=== PATIENT | female | born 1960 | race Caucasian/White ===

== ENCOUNTER 2017-09-25 22:46 | Observation (INO) | payer OTHER ==
[2017-09-25] MEDS ORDERED: Dextrose 50% Abboject 50 ML SYRINGE ONE (22:51)
[2017-09-25 23:06] LABS: #Eosinphils 0.1 thou/uL (0.0-0.7); #Lymphocytes 0.6 thou/uL (1.20-3.40); #Monocytes 0.7 thou/uL (0.11-0.59); #Neutrophils 9.4 thou/uL (1.40-6.50); %Basophils 0.2 % (0.0-1.0); %Eosinophils 1.2 % (0.0-10.0); %Lymphocytes 5.8 % (21.0-51.0); %Monocytes 6.7 % (0.0-10.0); Hematocrit 47.9 % (36.0-47.0); Mean Platelet Volume 6.2 fL (7.4-10.4); Red Blood Cell (RBC) Count 5.44 mill/uL (4.20-5.40)
[2017-09-25 23:30] LABS: ALT (SGPT) 17 U/L (8-55); AST (SGOT) 22 U/L (5-34); Alkaline Phosphatase 100 U/L (40-150); Anion Gap 14 mmol/L (10-20); BUN (Urea Nitrogen) 25 mg/dL (9.8-20.1); Bilirubin, Total 0.4 mg/dL (0.2-1.2); Calc. Creatinine Clearance 0 mL/min (70-130); Calcium 9.3 mg/dL (7.8-10.44); Carbon Dioxide 31 mmol/L (22-29); Chloride 101 mmol/L (98-107); Estimated GFR-MDRD 48; Globulin 3.5 g/dL (2.4-3.5); Protein, Total 7.6 g/dL (6.0-8.3)
[2017-09-25] MEDS ORDERED: Ondansetron HCl/PF 4 MG/2 ML Vial ONE (23:34)
[2017-09-25 23:44] LABS: CK (CPK) 181 U/L (29-168); Lipase 14 U/L (8-78)
[2017-09-25 23:47] LABS: Troponin I Less than 0.010 ng/mL (< 0.028)
[2017-09-26] MEDS ORDERED: HumaLOG 300 UNITS/3 ML VIAL SC PRN (00:38)
[2017-09-26] MEDS ORDERED: Dextrose 50% Abboject 50 ML SYRINGE SLOW IVP PRN (00:38)
[2017-09-26] MEDS ORDERED: Dextrose 5% in Water 1,000 ML IV PRN (00:38)
[2017-09-26] MEDS ORDERED: Ondansetron HCl/PF 4 MG/2 ML Vial IVP PRN (00:38)
[2017-09-26] MEDS ORDERED: cloNIDine 0.1 MG TAB PO PRN (00:42)
[2017-09-26] MEDS ORDERED: Sodium Chloride 0.9% 1,000 ML IV SCH (00:45)
--- NOTE | 2017-09-26 01:06 | PDOC.EVN ---
Event Note - Event Note Event Note: [id number] H&P Dictated 1. Hypoglycemia 2. HTN 3. DM type 2 plan: see orders
[2017-09-26] MEDS ORDERED: Dextrose 5 % And 0.9 % NaCl 1,000 ML IV SCH (01:15)
[2017-09-26 02:16] LABS: #Eosinphils 0.1 thou/uL (0.0-0.7); #Lymphocytes 0.3 thou/uL (1.20-3.40); #Monocytes 0.8 thou/uL (0.11-0.59); #Neutrophils 8.2 thou/uL (1.40-6.50); %Eosinophils 1.3 % (0.0-10.0); %Lymphocytes 2.7 % (21.0-51.0); Hematocrit 40.1 % (36.0-47.0); Mean Platelet Volume 6.6 fL (7.4-10.4); Red Blood Cell (RBC) Count 4.57 mill/uL (4.20-5.40); White Blood Cell (WBC) Count 9.4 thou/uL (4.8-10.8)
[2017-09-26 02:25] LABS: Troponin I Less than 0.010 ng/mL (< 0.028)
[2017-09-26 02:26] LABS: Anion Gap 15 mmol/L (10-20); BUN (Urea Nitrogen) 28 mg/dL (9.8-20.1); Calc. Creatinine Clearance 0 mL/min (70-130); Calcium 7.9 mg/dL (7.8-10.44); Carbon Dioxide 23 mmol/L (22-29); Chloride 103 mmol/L (98-107); Estimated GFR-MDRD 58
[2017-09-26 06:03] LABS: Troponin I Less than 0.010 ng/mL (< 0.028)
--- NOTE | 2017-09-26 06:49 | HP ---
DATE OF ADMISSION: 09/26/2017 CHIEF COMPLAINT: Epigastric discomfort, nausea, vomiting, and near syncope. HISTORY OF PRESENT ILLNESS: The patient is 56 years old female with past medical history of diabetes mellitus type 2, hypertension. The patient did not eat much since this morning, she had a little di nner this evening, where she started feeling nauseous and then she had an episode of vomiting followi ng that patient felt lightheadedness. She again had another episode of vomiting, patient did not pas s out, but was became extremely weak, so patient was brought to the ER. Upon ER arrival, the patient was hypoglycemic with blood sugar around 45, so patient was given glucose and patient's blood sugar later on improved. The patient denies any chest pain, denies any trouble breathing, denies any palpit ations. The whole episode lasted for likely 30 to 40 minutes. Denies any fever, denies any chills, denies any cough, denies sputum production. PAST MEDICAL HISTORY: Hypertension, diabetes mellitus type 2. PAST SURGICAL HISTORY: Hysterectomy. SOCIAL HISTORY: Denies smoking. Occasional alcohol. Denies any drugs. FAMILY HISTORY: Positive for heart problems. MEDICATIONS: Reviewed. REVIEW OF SYSTEMS: Constitutional: Denies any fever, denies any chills, Denies any vision problem. Eyes: Negative. Neck. Denies any neck pain. Cardiovascular system: Denies any chest pain, denie s any palpitations. Respiratory system: Denies any cough, denies sputum production. Gastrointestin al: Positive for nausea and vomiting. Genitourinary: Denies dysuria. Integumentary: Denies any r vidya. All other review of systems are reviewed and are negative. PHYSICAL EXAMINATION: CONSTITUTIONAL/VITAL SIGNS: At the time of H and P performed, blood pressure is 120/70, pulse oximet ry 98%, heart rate of 111. GENERAL APPEARANCE: The patient appears comfortable. HEENT: Pupils are equal, round, and reactive to light. Anterior nares patent. Teeth intact. Tongu e is moist. NECK: Supple. No JVD. CARDIOVASCULAR: S1, S2 present. Regular rate and rhythm. No murmurs, no rubs, no gallops. RESPIRATORY: No wheezing, no rhonchi. GASTROINTESTINAL: Abdomen is soft, nontender, no guarding, no organomegaly. INTEGUMENT: No obvious rashes seen. PSYCHIATRIC: Mood is appropriate at this time. MUSCULOSKELETAL: No edema. LABORATORY DATA: At the time of H and P performed, sodium 142, potassium 3.6, chloride 101, CO2 of 3 1, BUN 25, creatinine 1.17, glucose 48, total bilirubin 0.4, albumin 4.1. White count 11, hemoglobin 15.4, platelet count is 338. ASSESSMENT AND PLAN: The patient is 56 years old female. 1. Hypoglycemia. Plan to start patient on D5 normal saline. Plan to monitor blood sugars closely. We will follow the patient closely. 2. Near syncope plus abnormal EKG. EKG showed some T-wave inversions and ST depressions seen in V4, V5, V6, and diversions seen in lead 1 and aVL also. We will go ahead and consult Cardiology to eval uate the patient. We will check cardiac enzymes. We will monitor the patient closely. 3. Hypertension. Monitor blood pressure. Continue blood pressure medications. 4. Diabetes mellitus, type 2. Monitor blood sugars. Hold diabetic medications. We will adjust her insulin sliding scale. The case was discussed in detail with the patient.
[2017-09-26] MEDS: Aspirin 325 MG TAB PO SCH (08:32)
--- NOTE | 2017-09-26 10:02 | RAD ---
PORTABLE CHEST: Date: 09/26/17 HISTORY: Chest pain after eating and throwing up. FINDINGS: Heart size and mediastinum are within normal limits. No signs of pneumomediastinum. The lungs are jose ar are clear of infiltrates. IMPRESSION: No active intrathoracic disease. POS: [facility]
[2017-09-26] MEDS: Acetaminophen 325 MG TAB PO PRN ×2 (10:27→20:11)
--- NOTE | 2017-09-26 10:46 | PDOC.EVN ---
Event Note - Event Note Event Note: No complaint expressed. Feels better. PE unremarkable. Continue current therapy.
[2017-09-26] MEDS: HumaLOG 300 UNITS/3 ML VIAL SC PRN ×3 (11:26→17:12)
[2017-09-26] MEDS ORDERED: Potassium Chloride 20 MEQ TAB PO SCH (16:45)
[2017-09-26] MEDS: Sodium Chloride 0.9% 1,000 ML IV SCH (17:11)
--- NOTE | 2017-09-26 17:27 | CON ---
DATE OF CONSULTATION: 09/26/2017 HISTORY OF PRESENT ILLNESS: Ms. Montiel is a 56-year-old woman with abnormal EKG. Ms. Montiel states that she was feeling okay yesterday. She was eating what was going to be their T hanksgiving dinner yesterday. She took an extra amount of insulin regular because she was going to e at more than she normally did. She said after she ate, she did not feel well. She just did not have any specific, just did not feel well, then she got nauseated and vomited. She felt extremely poor l ately, but she did not have any chest pain that she can recall, just did not feel well at all. The f amily brought her to the emergency room. Her sugar at home was within normal limits over 100, but sh e vomited and by the time she got here, she was hypoglycemic. She has had hypoglycemia corrected now . She is feeling better, but the EKG was abnormal during this episode. PAST MEDICAL HISTORY: She has a history of cardiomyopathy diagnosed previously which later improved. The most recent ejection fraction was normal. She sees Dr. Lim in the office, she saw Dr. Carina [facility]. I did not actually see a recent EKG. There was initially some consideration for cardiac catheterization, but the heart muscle improved; th erefore she did not have cardiac catheterization because she had been doing well up until recently. MEDICATIONS AT HOME: She takes, 1. Triamterene and hydrochlorothiazide. 2. Klonopin. 3. Losartan. 4. Carvedilol. 5. Pantoprazole. 6. Humalog. Here, she has not been getting the beta angeli or angiotensin receptor angeli as she has been hypot ensive or at least relatively so with a blood pressure this morning was 85/49 at 11:30 a.m. Also, she is tachycardic and pulse is 109 this morning. ALLERGIES: None known. Other medications, she also takes insulin. She does have a history of her sugar getting high as well as low. FAMILY HISTORY: Positive for heart disease. SOCIAL HISTORY: No alcohol or tobacco. REVIEW OF SYSTEMS: CONSTITUTIONAL: No significant weight gain or loss. VISION: No changes. HEARING: No changes. PULMONARY: No cough or wheezing. GASTROINTESTINAL: No nausea, vomiting, diarrhea. SKIN: No rashes. NEUROLOGIC: No unilateral weakness or numbness. PSYCHIATRIC: No unusual depression or anxiety. HEMATOLOGIC: No unusual bruising. GENITOURINARY: No burning with urination. MUSCULOSKELETAL: No unusual joint pains. PHYSICAL EXAMINATION: GENERAL: A pleasant 56-year-old woman resting comfortably now says that she feels well now. VITAL SIGNS: Blood pressure is still on the low side at 103/64, pulse is 105 earlier in the day, the blood pressure is 85/49, pulse 103. She has been receiving D5W apparently for fluid. HEENT: Sclerae nonicteric. Mouth mucous membranes moist. NECK: Supple, no lymphadenopathy. LUNGS: Clear, no wheezing, rales or rhonchi. CARDIOVASCULAR: She is still tachycardic for rest. There is no murmur, rub or gallop. ABDOMEN: Soft, nontender, no hepatosplenomegaly. EXTREMITIES: No clubbing or cyanosis. There is no edema. Peripheral pulses are present. LABORATORY DATA AND X-RAY FINDINGS: The potassium was 3.7. I did not see a recent lipid profile. Troponin levels were negative. EKG, sinus rhythm. There is some ST depression in V4, V5 and V6 with downsloping with T-wave inversions. There is also some 0.[address] depression in leads II, II and aVL. This is different from EKG done in 2012. These findings were not present at that time. EKG shah s not been repeated that I can tell. I have ordered another one. ASSESSMENT: 1. Episode of weakness and fatigue of uncertain etiology. 2. Hypoglycemia, probably related to taking a little bit of extra insulin and then vomiting subseque ntly with subsequent drop in glucose. 3. History of cardiomyopathy with a later improvement. The ejection fraction is now normal. 4. Abnormal electrocardiogram, nonspecific findings. PLAN: 1. EKG needs to be repeated. 2. Hypokalemic, slightly will give potassium. 3. We recommend stress testing in view of EKG changes. 4. I think she is volume depleted, which is why she is still probably tachycardic and relatively hyp otensive, cannot get angiotensin receptor blockers or beta blockers at the present time due to the lo w blood pressure.
[2017-09-27] MEDS: Sodium Chloride 0.9% 1,000 ML IV SCH ×3 (01:53→20:48)
[2017-09-27] MEDS ORDERED: Alendronate Sodium 70 mg Tablet PO SCH (06:00)
[2017-09-27] MEDS: Aspirin 325 MG TAB PO SCH (09:15)
[2017-09-27] MEDS: HumaLOG 300 UNITS/3 ML VIAL SC PRN (12:57)
--- NOTE | 2017-09-27 13:52 | NM ---
NUCLEAR MEDICINE CARDIAC STRESS TEST WITH EJECTION FRACTION: HISTORY: Chest pain. COMPARISON: Nuclear medicine stress test dated 10/25/12. TECHNIQUE: Stress and rest performed after the intravenous administration of 27.4 and 9.9 mCi technetium-99m ses tamibi. FINDINGS: There is reversible ischemia of the inferior wall of the lateral ventricle near the base. No scar. No rmal wall motion. Normal ejection fraction. Ejection fraction calculated at 88%. IMPRESSION: 1. Reversible ischemia of the inferior wall of the lateral ventricle at the base. 2. No evidence of scar. 3. Normal ejection fraction and wall motion. POS: [facility]
[2017-09-27] MEDS ORDERED: Communication Order-Pharmacy FS SCH (15:00)
--- NOTE | 2017-09-27 15:24 | PDOC.PN ---
- Subjective Encounter Start Date: 09/27/17 Encounter Start Time: 15:22 Pt seen for followup re: nausea. Denies chest pain, shortness of breath, fevers or chills. - Objective MAR Reviewed: Yes Vital Signs & Weight: Vital Signs (12 hours) Temp Pulse Resp BP Pulse Ox 09/27/17 12:35 98.7 F 112 H 16 115/58 L 96 09/27/17 08:17 98.4 F 94 16 09/27/17 08:00 99.0 F 97 16 122/57 L 94 L Weight Weight 168 lb 11.2 oz I&O: 09/26/17 09/27/17 09/28/17 06:59 06:59 06:59 Intake Total 2774 100 Output Total 2110 Balance 664 100 Result Diagrams: 09/26/17 01:49 09/26/17 01:49 Additional Labs: Accuchecks 09/27/17 09/27/17 09/26/17 12:38 06:18 21:04 POC Glucose 425 H 289 H 188 H 09/26/17 09/26/17 16:34 15:12 POC Glucose 213 H 217 H EKG Reviewed by me: Yes (Tele: NSR) Phys Exam - Physical Examination Constitutional: NAD HEENT: PERRLA, moist MMs, sclera anicteric, oral pharynx no lesions Neck: no nodes, no JVD, supple, full ROM Respiratory: no wheezing, no rales, no rhonchi, clear to auscultation bilateral Cardiovascular: RRR, no rub Gastrointestinal: soft, non-tender, no distention, positive bowel sounds Musculoskeletal: pulses present Neurological: moves all 4 limbs Lymphatic: no nodes Psychiatric: normal affect, A&O x 3 Skin: no rash, normal turgor, cap refill <2 seconds Dx/Plan (1) Nausea Code(s): R11.0 - NAUSEA Status: Acute (2) Abnormal stress test Status: Acute (3) HTN (hypertension) Code(s): I10 - ESSENTIAL (PRIMARY) HYPERTENSION Status: Chronic (4) DM2 (diabetes mellitus, type 2) Status: Chronic - Plan DVT proph w/SCDs * . Continue accuchecks, insulin sliding scale. Monitor vital signs, titrate antihypertensives as needed. Pt will likely need cath. Continue to monitor on telemetry. Review of Systems - Review of Systems Constitutional: negative: Fever, Chills, Sweats, Weakness, Malaise Respiratory: negative: Cough, Dry, Shortness of Breath, Hemoptysis, SOB with Excertion, Pleuritic Pain, Sputum, Wheezing Cardiovascular: negative: Chest Pain, Palpitations, Orthopnea, Paroxysmal Noc. Dyspnea, Edema, Light Headedness Gastrointestinal: negative: Nausea, Vomiting, Abdominal Pain, Diarrhea, Constipation, Melena, Hematochezia Genitourinary: negative: Dysuria, Frequency, Incontinence, Hematuria, Retention Musculoskeletal: Other (Champ arm tingling) - Medications/Allergies Allergies/Adverse Reactions: Allergies Allergy/AdvReac Type Severity Reaction Status Date / Time No Known Allergies Allergy Verified 09/26/17 02:31 Medications: Current Medications Acetaminophen (Tylenol) 650 mg PO Q4H PRN PRN Reason: Headache/Fever or Pain Last Admin: 09/26/17 20:11 Dose: 650 mg Aspirin (Aspirin) 325 mg PO DAILY [facility] Last Admin: 09/27/17 09:15 Dose: Not Given Clonidine (Catapres) 0.1 mg PO Q6H PRN PRN Reason: SBP GREATER THAN 160 Dextrose/Water (Dextrose 50%) 25 gm SLOW IVP PRN PRN PRN Reason: Hypoglycemia Glucagon (Glucagon) 1 mg IM PRN PRN PRN Reason: Hypoglycemia Dextrose/Water (D5w) 1,000 mls @ 0 mls/hr IV .Q0M PRN; As Directed PRN Reason: Hypoglycemia Sodium Chloride (Normal Saline 0.9%) 1,000 mls @ 100 mls/hr IV .Q10H [facility] Last Admin: 09/27/17 13:06 Dose: Not Given Insulin Human Lispro (Humalog) 0 units SC .MODERATE SLIDING SC PRN PRN Reason: Moderate Correctional Scale Last Admin: 09/27/17 12:57 Dose: 10 unit Insulin Human Lispro (Humalog) 0 units SC .BEDTIME SLIDING SC PRN PRN Reason: Bedtime Correctional Scale Miscellaneous Information (Communication Order-Pharmacy) 0 each FS ONE [facility] Ondansetron HCl (Zofran) 4 mg IVP Q6H PRN PRN Reason: Nausea/Vomiting Sodium Chloride (Flush - Normal Saline) 10 ml IVF Q12HR [facility] Last Admin: 11/20/17 09:15 Dose: Not Given Sodium Chloride (Flush - Normal Saline) 10 ml IVF PRN PRN PRN Reason: Saline Flush
[2017-09-27] MEDS ORDERED: SUMAtriptan Succinate 50 MG TAB PO PRN (15:27)
[2017-09-27] MEDS ORDERED: clonazePAM 1 MG TAB PO PRN (15:27)
[2017-09-27] MEDS: Carvedilol 6.25 MG TAB PO SCH (20:51)
[2017-09-27] MEDS ORDERED: Non-Formulary Item 1 EACH (Levemir Flexpen [Levemir Flexpen] 30 UNIT) SC SCH (21:00)
[2017-09-27] MEDS ORDERED: Insulin Detemir 100 UNITS/ML 30 UNITS in Pre-Filled Syringe 1 EACH SC SCH (21:00)
[2017-09-27] MEDS: Acetaminophen 325 MG TAB PO PRN (21:46)
[2017-09-28] MEDS ORDERED: Iopamidol 370 76% 100 ML VIAL ONE ×2 (05:04→17:27)
[2017-09-28] MEDS: Aspirin 325 MG TAB PO SCH (05:24)
[2017-09-28] MEDS: Carvedilol 6.25 MG TAB PO SCH (05:24)
[2017-09-28] MEDS: Sodium Chloride 0.9% 1,000 ML IV SCH (07:16)
--- NOTE | 2017-09-28 07:40 | EKG ---
Test Reason : ROUTINE Blood Pressure : / mmHG Vent. Rate : 094 BPM Atrial Rate : 094 BPM P-R Int : 140 ms QRS Dur : 088 ms QT Int : 376 ms P-R-T Axes : 051 024 049 degrees QTc Int : 470 ms Poor data quality, interpretation may be adversely affected Normal sinus rhythm Normal ECG No previous ECGs available Confirmed by CHRISTOPHER MCNALLY, DR. Flores ([id number]) on 09/28/2017 7:39:58 AM Referred By: ANDRY Confirmed By:DR. Sandra WHITE MD
[2017-09-28] MEDS ORDERED: Heparin 1000 UNIT/NS 500ML(OR) 1,000 ML ONE (08:18)
[2017-09-28] MEDS ORDERED: Triamterene/Hydrochlorothiazide 37.5 mg/25 mg Tablet PO SCH (09:00)
[2017-09-28] MEDS ORDERED: Losartan 25 MG TAB PO SCH (09:00)
[2017-09-28] MEDS ORDERED: Heparin 10,000 UNITS/1 ML VIAL ONE (09:33)
[2017-09-28] MEDS ORDERED: Verapamil 5 MG/2 ML VIAL ONE (09:33)
[2017-09-28] MEDS ORDERED: Nitroglycerin 100MG/250ML BOT 250 ML ONE (09:33)
[2017-09-28] MEDS ORDERED: Nitroglycerin 0.4 MG TAB (25 Tab Bottle) SL PRN (10:28)
[2017-09-28] MEDS ORDERED: Acetaminophen/Codeine 30-300mg Tablet PO PRN ×2 (10:28)
[2017-09-28] MEDS ORDERED: Sodium Chloride 0.9% 200 ML IV SCH (10:28)
[2017-09-28] MEDS ORDERED: traMADol HCl 50 MG TAB PO PRN (10:28)
[2017-09-28 10:30] VITALS: BP 107/53
[2017-09-28 10:33] VITALS: TEMP 98.1
--- NOTE | 2017-09-28 23:01 | DIS ---
DATE OF ADMISSION: 09/26/2017 DATE OF DISCHARGE: 09/28/2017 PRIMARY CARE PHYSICIAN: Michael Galloway MD DISCHARGE DIAGNOSES: 1. Nausea 2. Hypoglycemia. CONDITION OF PATIENT AT THE TIME OF DISCHARGE: Stable. I assessed Ms. Montiel on the day of discharge. She denies any chest pain or shortness of breath. Vital signs are stable. S1 and S2 are heard, regular. Lungs are clear to auscultation bilaterally. DISCHARGE MEDICATIONS: Fosamax 70 mg every week, Coreg 12.5 mg 2 times a day, clonazepam 1 mg 2 times a day as needed, Levemir 30 units 2 times a day, Cozaar 50 mg daily, Protonix 40 mg daily, sumatriptan 100 mg every 2 hours as needed, triamterene/hydrochlorothiazide 37.5/25 mg daily. HOSPITAL COURSE: Ms. Montiel is a pleasant 56-year-old lady who was admitted to [facility] on 09/26/2017 for hypoglycemia and nausea. There was no recurrence of hypoglycemia. In terms of nausea, atypical presentation of ACS was suspected. She had a nuclear stress test on 09/27/2017, which showed reversible ischemia on the inferior wall of the lateral ventricle at the base, no evidence of scar and normal ejection fraction and wall motion. She went on to have a cardiac catheterization on 09/28/2017, which showed normal coronaries. She is advised to keep a record of her Accu-Cheks and show the readings to her primary care provider in 3-5 days' time, so that her insulin can be titrated. Please note that she had a normal D-dimer during this hospitalization. Many thanks for allowing me to participate in your patient's care. Please feel free to contact me with any questions or concerns. On 09/26/2017, she had a normal white count of 9,400, hemoglobin 13.2, platelet count 206,000. During this hospitalization, she had triglycerides 170, cholesterol 146, LDL cholesterol 79 and HDL total cholesterol 33 on fasting lipid profile. She is advised to follow up with her primary care physician for management of dyslipidemia. DISCHARGE DESTINATION: Home. [facility]
--- NOTE | 2017-09-29 05:29 | ADD-DIS ---
PRIMARY CARE PROVIDER: Michael Galloway M.D. DISCHARGE DIAGNOSES: 1. Nausea. 2. Hypoglycemia. The patient did not have chest pain prior to or during this hospitalization. She reported bilateral upper extremity numbness and tingling.
--- NOTE | 2017-10-30 14:15 | EKG ---
Test Reason : Blood Pressure : / mmHG Vent. Rate : 105 BPM Atrial Rate : 105 BPM P-R Int : 140 ms QRS Dur : 092 ms QT Int : 384 ms P-R-T Axes : 045 009 079 degrees QTc Int : 507 ms Sinus tachycardia Possible Left atrial enlargement Septal infarct , age undetermined T wave abnormality, consider lateral ischemia Abnormal ECG New c/w 18-JUN-2012 Confirmed by SKINNY TREVIÑO DO ([id number]), coke drawer hand HELIO LUTHER ([id number]) on 10/30/2017 2:15:03 PM Referred By: Confirmed By:SKINNY TREVIÑO DO
== END 2017-09-28 16:00 | disposition home or self-care (01) ==
LOC: ERS 22:46 → 2SW 09-26 02:05
PROVIDERS: ADMIT Internal Medicine; ATTEND Internal Medicine
DX: R11.0 Nausea (principal); E11.649 Type 2 diabetes mellitus with hypoglycemia without coma; I10 Essential (primary) hypertension; R55 Syncope and collapse; R00.0 Tachycardia, unspecified; E87.6 Hypokalemia; Z79.4 Long term (current) use of insulin; Z79.899 Other long term (current) drug therapy; Z90.710 Acquired absence of both cervix and uterus
CPT/HCPCS: 36415; 36416; 71010; 78452; 80048; 80053; 80061; 82553; 83690; 84484; 85025; 85379; 93005; 93010; 93017; 93306; 93458; 96360; 96361; 96374; 96375; A4216; A9500; C1769; G0378; J1644; J1815; J2405

== ENCOUNTER 2020-06-04 17:54 | Emergency (ER) | payer OTHER ==
--- NOTE | 2020-06-04 18:34 | RAD ---
Exam: Chest one view HISTORY:COVID positive. Worsening. Comparison: 09/26/2017 FINDINGS: Cardiac silhouette: Normal Aorta: Minimal atherosclerosis Pulmonary vessels: Normal Costophrenic angles: Clear LUNGS: No masses or consolidation. Minimal interstitial opacities which are favored to be chronic. Pneumothorax: None Osseous abnormalities: None IMPRESSION: Minimal interstitial opacities which are favored to be chronic. Continued surveillance is recommended.
[2020-06-04] MEDS ORDERED: Ondansetron PF 4 MG/2 ML Vial ONE (18:51)
[2020-06-04 19:21] LABS: #Eosinphils 0.1 thou/uL (0.0-0.7); #Lymphocytes 1.6 thou/uL (1.20-3.40); #Monocytes 0.4 thou/uL (0.11-0.59); %Basophils 0.4 % (0.0-1.0); %Eosinophils 1.6 % (0.0-10.0); %Lymphocytes 38.7 % (21.0-51.0); %Monocytes 10.4 % (0.0-10.0); %Neutrophils 48.8 % (42.0-75.0); Hemoglobin 13.1 g/dL (12.0-16.0); Mean Corpuscular HGB CONC 33.4 g/dL (32.0-36.0); Mean Corpuscular Hemoglobin 29.1 pg (27.0-31.0); Mean Corpuscular Volume 86.9 fL (78.0-98.0); Platelet Count 166 thou/uL (130-400); RBC Distribution Width 12.4 % (11.5-14.5); Red Blood Cell (RBC) Count 4.51 mill/uL (4.20-5.40); White Blood Cell (WBC) Count 4.1 thou/uL (4.8-10.8)
[2020-06-04 19:40] LABS: ALT (SGPT) 28 U/L (8-55); AST (SGOT) 39 U/L (5-34); Albumin 3.8 g/dL (3.5-5.0); Alkaline Phosphatase 47 U/L (40-110); Anion Gap 15 mmol/L (10-20); BUN (Urea Nitrogen) 12 mg/dL (9.8-20.1); Bilirubin, Total 0.3 mg/dL (0.2-1.2); Calc. Creatinine Clearance 0 mL/min (70-130); Calcium 7.9 mg/dL (7.8-10.44); Carbon Dioxide 25 mmol/L (22-29); Chloride 107 mmol/L (98-107); Estimated GFR-MDRD 71; Globulin 2.9 g/dL (2.4-3.5); Glucose 64 mg/dL (70-105); Potassium 3.9 mmol/L (3.5-5.1); Protein, Total 6.7 g/dL (6.0-8.3); Sodium 143 mmol/L (136-145)
== END 2020-06-04 21:32 | disposition home or self-care (01) ==
LOC: ERS 17:54
DX: U07.1 COVID-19 (principal); R11.2 Nausea with vomiting, unspecified; E10.649 Type 1 diabetes mellitus with hypoglycemia without coma; I10 Essential (primary) hypertension; F32.9 Major depressive disorder, single episode, unspecified; Z79.899 Other long term (current) drug therapy
CPT/HCPCS: 36416; 71045; 80053; 84484; 85025; 93005; 96361; 96374; J2405

== ENCOUNTER 2021-08-06 09:27 | Outpatient (CLI) | payer BC | END 2021-08-06 09:28 | disposition home or self-care (01) | LOC: BICRAD 09:27 | PROVIDERS: ATTEND Specialist | DX: M43.16 Spondylolisthesis, lumbar region (principal); M47.817 Spondylosis without myelopathy or radiculopathy, lumbosacral region; M51.36 Other intervertebral disc degeneration, lumbar region; M51.37 Other intervertebral disc degeneration, lumbosacral region | CPT/HCPCS: 72110 ==

== ENCOUNTER 2022-07-14 10:54 | Outpatient (CLI) | payer BC | END 2022-07-14 10:55 | disposition home or self-care (01) | LOC: BICRAD 10:54 | PROVIDERS: ATTEND Nurse Practitioner Family | DX: M43.16 Spondylolisthesis, lumbar region (principal); M47.816 Spondylosis without myelopathy or radiculopathy, lumbar region | CPT/HCPCS: 72120 ==

== ENCOUNTER 2023-06-14 13:28 | Outpatient (CLI) | payer BC | END 2023-06-14 13:29 | disposition home or self-care (01) | LOC: RAD 13:28 | PROVIDERS: ATTEND Podiatrist | DX: M79.672 Pain in left foot (principal); R60.0 Localized edema; M81.0 Age-related osteoporosis without current pathological fracture; L53.9 Erythematous condition, unspecified ==